=== PATIENT | female | born 1995 | race Caucasian/White ===

== ENCOUNTER → 2023-12-31 07:52 | Outpatient (REF) | payer BC, SELFPAY ==
[2023-12-31 11:42] LABS: % Basophils 0.8 % (0-2); % Immature Granulocytes 0.3 % (0-0.5); % Lymphocytes 30.8 % (20.5-51.1); % Monocytes 7.8 % (1.7-9.3); % Neutrophils 58.3 % (42.2-75.2); Absolute Basophils 0.1 10^3/uL (0-0.2); Absolute Eosinophils 0.2 10^3/uL (0-0.7); Absolute Lymphocytes 2.7 10^3/uL (1.2-3.4); Absolute Monocytes 0.7 10^3/uL (0.1-0.6); Absolute Neutrophils 5.1 10^3/uL (1.4-6.5); Hematocrit 38.3 % (37.0-47.0); Mean Corp Hgb Conc. 33.9 g/dL (33.0-37.0); Mean Corpuscular Volume 85.5 fL (81.0-99.0); Mean Platelet Volume 8.8 fL (7.4-10.4); Nucleated Red Blood Cells % 0 %; Platelet Count 353 10^3/uL (130-400); Red Blood Cell Count 4.48 10^6/uL (4.20-5.40); Red Cell Dist. Width 13.8 % (11.5-14.5); White Blood Cell Count 8.8 10^3/uL (4.8-10.8)
[2023-12-31 11:57] LABS: ALT (SGPT) 25 U/L (0-35); AST (SGOT) 25 U/L (14-36); Albumin 4.8 g/dl (3.5-5.0); Alkaline Phosphatase 63 U/L (38-126); Blood Urea Nitrogen 11 mg/dl (7-17); Calcium 9.9 mg/dl (8.4-10.2); Carbon Dioxide 23 mmol/L (22-30); Chloride 103 mmol/L (98-107); Glucose 95 mg/dl (70-99); HDL Cholesterol 57 mg/dl; LDL Cholesterol, Calculated 134 mg/dl; Potassium 4.7 mmol/L (3.5-5.1); Sodium 139 mmol/L (135-145); Total Bilirubin 1.8 mg/dl (0.2-1.3); Total Cholesterol 214 mg/dl (50-199); Total Protein 7.5 g/dl (6.3-8.2); Triglyceride 118 mg/dl (10-149); Very Low Density Lipoprotein 23 mg/dl (0-30); eGFR > 60.00
== END ==
LOC: REG 07:52
PROVIDERS: ATTENDING PHYSICIAN Obstetrics & Gynecology; FAMILY PHYSICIAN Family Medicine
DX: Z01.419 Encounter for gynecological examination (general) (routine) without abnormal findings (principal)
CPT/HCPCS: 36415; 80053; 80061; 85025

== ENCOUNTER → 2024-10-18 14:21 | Outpatient (REF) | payer BC, SELFPAY | LOC: HWRAD 14:21 | PROVIDERS: ATTENDING PHYSICIAN Family Medicine | DX: R22.1 Localized swelling, mass and lump, neck (principal); R59.9 Enlarged lymph nodes, unspecified | CPT/HCPCS: 76536 ==

== ENCOUNTER → 2024-10-31 10:41 | Outpatient (REF) | payer BC, SELFPAY | LOC: REG 10:41 | PROVIDERS: ATTENDING PHYSICIAN Family Medicine | DX: R19.7 Diarrhea, unspecified (principal) | CPT/HCPCS: 87045; 87046; 87328; 87329; 87427 ==

== ENCOUNTER 2025-03-06 09:58 | Emergency (ER) | payer BC, SELFPAY ==
[2025-03-06 10:00] VITALS: BP 125/83
--- NOTE | 2025-03-06 12:00 | ED.GENMED ---
History of Present Illness
General
Chief Complaint: Musculo-Skeletal Complaint
Source: patient
Exam Limitations: none
Time Seen by Provider: 03/06/25 11:09
Nursing documentation reviewed up to this point in time: agreed with
History of Present Illness
History of Present Illness:
29-year-old female presenting to the emergency department today with concerns of left ankle discomfort after stepping in a hole in her driveway last night. Has been able to ambulate but has had been doing so and has been limping. Has noticed
swelling that worsened this morning. Denies any additional trauma.
Past History
Past History
ED Past Medical History: None
ED Past Surgical History: None
Review of Systems
Review of Systems
Allergies reviewed?: Yes
All Other Systems: ROS reviewed and negative except as documented in HPI and ROS
Phy Exam
Physical Exam
Physical Exam:
GENERAL: Alert , in no apparent distress
EYE: pupils equal and reactive
NECK: Supple, no significant adenopathy.
ENT: o/p clr, mmm.
CARDIAC: Regular rate and rhythm .
LUNGS: Clear breath sounds bilaterally, no acute respiratory distress, no wheezes/rales/rhonchi
ABDOMEN: Soft, without focal tenderness, no r/g, no cvat
NEUROLOGICAL: Alert and oriented, no focal neuro deficits
SKIN: Warm and dry, skin intact.
MUSCULOSKELETAL: Swelling mainly overlying the left lateral malleolus no other significant swelling mild tenderness to the lateral malleolus with no joint laxity. No pain to the Achilles no pain to the medial malleolus remainder of the foot or
ankle. No pain to the okeefe or knee., well perfused.
PSYCH: Normal and appropriate interaction.
Course
Orders/Labs/Results
Orders:
Orders
03/06/25 10:02
CR Ankle - Left Min 3 Views Urgent
Comment:
Reason For Exam: pain/fall
Vital Signs
Initial and Last Documented VS:
Initial Vital Signs
Temp Pulse Resp BP Pulse Ox
97.7 F 87 20 125/83 99
03/06/25 10:00 03/06/25 10:00 03/06/25 10:00 03/06/25 10:00 03/06/25 10:00
Last Documented Vital Signs
Temp Pulse Resp BP Pulse Ox
97.7 F 87 20 125/83 99
03/06/25 10:00 03/06/25 10:00 03/06/25 10:00 03/06/25 10:00 03/06/25 12:07
MDM/Problems Addressed
MDM/Problems Addressed:
29-year-old female presenting with concerns of left ankle pain after twisting last night. Here pain is over the left lateral malleolus. X-ray without signs of acute fracture. Patient with likely sprain. Patient advised for conservative treatment
otherwise follow-up as needed. Return precautions given.
*Pulse Oximetry
SaO2: 99
Oxygen Mode of Delivery: Room air
Patient hypoxic: no (99)
*Critical Care Note
Total Time (30-74mins, 75-104mins- exclusive of procedures): Not Applicable
ED Attending Note
-
Portions of this chart may have been created with voice recognition software.� Occasional wrong word or��sound alike� substitutions may have occurred due to the inherent limitations of voice recognition software.
Discharge Plan
Departure
Patient Disposition: Home (Routine Discharge)
Date of Disposition: 03/06/25
Time of Disposition: 12:00
Patient with high blood pressure during this ER visit?: No
Condition: Good
Covid-19: Not Applicable
Discharge Problem:
Ankle sprain
Instructions: Sprain (DC)
Referrals:
Gricelda Mulligan DO [Family Provider, Family Practice]
Wilfred Fong MD [Active, Orthopedics] - Follow up in 5-7 days
Stand Alone Forms: Return to Work
Activity Restrictions/Additional Instructions:
You came to the emergency department today for concerns of an ankle injury. The x-ray did not show signs of fracture. This is likely a sprain. Please rest ice compress and elevate and return to activity as able. Return for any worsening, new or
concerning symptoms.
Interventions
Interventions:
*Risk Screen - Suicide Last Done: 03/06/25 10:00
*General Assessment Last Done: 03/06/25 10:00
*Neglect/Abuse Screening Last Done: 03/06/25 10:00
*Nursing Disposition Last Done: 03/06/25 12:42
ED-Musculoskeletal Assessment Last Done: 03/06/25 12:42
Discharge Date and Time
Discharge Date/Time: 03/06/25 12:43
Print Language: GU[place]
== END 2025-03-06 12:43 | disposition home or self-care (01) ==
LOC: EMR 09:58
PROVIDERS: EMERGENCY PHYSICIAN Emergency Medicine; FAMILY PHYSICIAN Family Medicine
DX: S93.402A Sprain of unspecified ligament of left ankle, initial encounter (principal); X50.1XXA Overexertion from prolonged static or awkward postures, initial encounter
CPT/HCPCS: 99283; 73610